=== PATIENT | female | born 1975 | race African-American/Black ===

== ENCOUNTER 2022-11-29 09:19 | Day surgery (SDC) | payer OTHER ==
[2022-11-22 12:45] VITALS: BMI 44.9
[~2022-11-29 09:19] MED LIST: LACTATED RINGERS SOLUTION 1,000 ML IV SCH; ONDANSETRON 4 MG/2 ML VIAL IVPUSH PRN; oxyCODONE HCL 5 MG TABLET PO PRN
[2022-11-29] MEDS ORDERED: GUM MASTIC/STORAX/MSAL/ALCOHOL 1 DRP DROPSBTL MC ONE (10:15)
[2022-11-29] MEDS ORDERED: BUPIVACAINE HCL/PF 0.25% (2.5MG/ML) 10 ML VIAL ONE (10:15)
[2022-11-29] MEDS ORDERED: BUPIVACAINE HCL/PF 0.5% (5MG/ML) 10 ML VIAL ONE (10:15)
[2022-11-29] MEDS ORDERED: ACETAMINOPHEN INJECTION 100 ML IVPB ONE (10:21)
[2022-11-29] MEDS ORDERED: MIDAZOLAM HCL 2 MG/2 ML SINGLE DOSE VIAL ONE (10:26)
[2022-11-29] MEDS ORDERED: PROPOFOL 20 ML ONE ×2 (10:26→11:28)
[2022-11-29] MEDS ORDERED: DEXAMETHASONE SOD PHOSPHATE 4 MG/1 ML VIAL ONE (10:57)
[2022-11-29] MEDS ORDERED: KETOROLAC TROMETHAMINE 30 MG/1 ML VIAL ONE (10:57)
[2022-11-29] MEDS ORDERED: ceFAZolin SODIUM 1 GM VIAL ONE (10:57)
[2022-11-29] MEDS ORDERED: ONDANSETRON 4 MG/2 ML VIAL ONE ×2 (10:57→11:53)
[2022-11-29] MEDS ORDERED: FENTANYL CITRATE/PF 50 MCG/ML VIAL ONE ×2 (11:46→11:52)
[2022-11-29] MEDS ORDERED: MORPHINE SULFATE 10 MG/1 ML *VIAL ONE (12:13)
[2022-11-29 12:33] VITALS: RESP 18
[2022-11-29] MEDS ORDERED: oxyCODONE HCL 5 MG TABLET ONE (13:10)
[2022-11-29 18:39] VITALS: BP 151/67; PULSE 61; TEMP 97.8
== END 2022-11-29 16:20 | disposition home or self-care (01) ==
LOC: FASU 09:19
PROVIDERS: ATTEND Orthopaedic Surgery Hand Surgery
PROC: 0LN40ZZ Release Left Upper Arm Tendon, Open Approach (ICD-10-PCS; principal; 2022-11-29 11:03)
DX: M77.12 Lateral epicondylitis, left elbow (principal)
CPT/HCPCS: 81025; 94760